=== PATIENT | male | born 1980 | race Caucasian/White ===

== ENCOUNTER 2016-11-05 23:00 | Emergency (ER) | payer BC ==
[2016-11-05 23:06] VITALS: BP 146/104
--- NOTE | 2016-11-06 00:31 | EDM.PDOC ---
ED HPI GENERAL MEDICAL PROBLEM - General Chief Complaint: Cardiovascular Problem Stated Complaint: [facility] Time Seen by Provider: 11/05/16 23:12 Source of Information: Reports: Patient, RN Notes Reviewed - History of Present Illness INITIAL COMMENTS - FREE TEXT/NARRATIVE: 36-year-old male has been brought in by caregiver ambulance after suffering symptoms of what patient describes as memory loss while at work. He states that he does remember getting to a well site but then seemed confused as to the time of the day or evening and how he got to the well site. He states he feels like he lost a period of time from starting his shift and hour or 2 prior. He took a short break from work or nap. He felt like he still was having some memory problems and difficulty concentrating. Therefore he called his boss. His supervisor cutting and sewing room then met him and helped him connect with [place] [facility] who than did transport him here without further incident. On arrival to ED he feels much better and more normal. He states he still feels like he is loss of memory for 2 or 3 hours last evening. He does remember his ambulance ride here and calling , talking to his boss her supervisor cutting and sewing room. He knows the date and does remember other events from earlier today. 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 He states this is about his fifth night he states he typically does work 7 days a week, about 10 hour shifts. He has not been ill recently with vomiting diarrhea. He did have some palpitations this evening but otherwise no chest pain or difficulty breathing. He has very slight frontal headache at this time. - Related Data Allergies Allergy/AdvReac Type Severity Reaction Status Date / Time No Known Allergies Allergy Verified 11/05/16 23:06 Home Meds: Home Meds . [No Known Home Meds] 11/05/16 [History] Past Medical History - Past Health History Medical/Surgical History: Denies Medical/Surgical History Dermatologic History: Reports: Other (See Below) Other Dermatologic History: ojeda to face, neck and hands - Infectious Disease History Infectious Disease History: Reports: Chicken Pox - Past Surgical History Dermatological Surgical History: Reports: Skin Graft Social & Family History - Tobacco Use Smoking Status *Q: Current Every Day Smoker Years of Tobacco use: 10 Packs/Tins Daily: 1 - Recreational Drug Use Recreational Drug Use: No - Living Situation & Occupation Living situation: Reports: Occupation: Employed ED ROS GENERAL - Review of Systems Review Of Systems: See Below Constitutional: Denies: Fever, Chills, Diaphoresis HEENT: Denies: Sinus Problem, Throat Pain, Vertigo, Vision Change Respiratory: Denies: Shortness of Breath Cardiovascular: Reports: Palpitations. Denies: Chest Pain GI/Abdominal: Denies: Abdominal Pain, Nausea, Vomiting Musculoskeletal: Denies: Neck Pain, Shoulder Pain, Arm Pain Skin: Reports: No Symptoms Neurological: Reports: Headache (Slight). Denies: Numbness, Tingling, Trouble Speaking, Difficulty Walking, Weakness ED EXAM, GENERAL - Physical Exam Exam: See Below General Appearance: Alert, No Apparent Distress Eye Exam: Bilateral Eye: PERRL Throat/Mouth: Normal Inspection, Normal Oropharynx Head: Atraumatic. No: Facial Swelling Neck: Supple, Full Range of Motion Respiratory/Chest: No Respiratory Distress, Lungs Clear, Normal Breath Sounds Cardiovascular: Regular Rate, Rhythm Back Exam: Normal Inspection, Full Range of Motion Extremities: Normal Inspection, Normal Range of Motion, Non-Tender, No Pedal Edema Neurological: Alert, Oriented, No Motor/Sensory Deficits, Other (Finger to nose testing normal) Skin Exam: Warm, Dry, Normal Color EKG INTERPRETATION EKG Date: 11/05/16 Rhythm: NSR [place]: Normal P-Wave: Present QRS: Normal ST-T: Normal Course - Vital Signs Last Recorded V/S: Last Vital Signs Temp 97.2 F 11/05/16 23:02 Pulse 70 11/05/16 23:02 Resp 16 11/05/16 23:02 BP 146/104 H 11/05/16 23:02 Pulse Ox 99 11/05/16 23:02 - Orders/Labs/Meds Orders: Active Orders 24 hr Category Date Time Status EKG 12 Lead [EKG Documentation Completion] [RC] STAT Care 11/05/16 23:13 Active Head wo Cont [CT] Stat Exams 11/06/16 00:00 Taken Labs: Laboratory Tests 11/05/16 11/05/16 11/05/16 Range/Units 23:05 23:05 23:05 WBC 9.58 H (4.23-9.07) K/mm3 RBC 5.68 (4.63-6.08) M/mm3 Hgb 17.5 (13.7-17.5) gm/L Hct 48.9 (40.1-51.0) % MCV 86.1 (79.0-92.2) fl MCH 30.8 (25.7-32.2) pg MCHC 35.8 H (32.2-35.5) g/dl RDW Std Deviation 40.7 (35.1-43.9) fL Plt Count 316 (163-337) K/mm3 MPV 9.3 L (9.4-12.3) fl Neut % (Auto) 57.7 (34.0-67.9) % Lymph % (Auto) 30.7 (21.8-53.1) % [place] % (Auto) 9.0 (5.3-12.2) % Eos % (Auto) 1.6 (0.8-7.0) Baso % (Auto) 0.3 (0.1-1.2) % Neut # (Auto) 5.53 H (1.78-5.38) K/mm3 Lymph # (Auto) 2.94 (1.32-3.57) K/mm3 [place] # (Auto) 0.86 H (0.30-0.82) K/mm3 Eos # (Auto) 0.15 (0.04-0.54) K/mm3 Baso # (Auto) 0.03 (0.01-0.08) K/mm3 Sodium 141 (136-145) mEq/L Potassium 4.0 (3.5-5.1) mEq/L Chloride 104 (98-107) mEq/L Carbon Dioxide 28 (21-32) mEq/L Anion Gap 13.0 (5-15) BUN 16 (7-18) mg/dL Creatinine 1.2 (0.7-1.3) mg/dL Est Cr Clr Drug Dosing 79.56 mL/min Estimated GFR (MDRD) > 60 (>60) mL/min BUN/Creatinine Ratio 13.3 L (14-18) Glucose 93 (74-106) mg/dL Calcium 9.6 (8.5-10.1) mg/dL Total Bilirubin 0.4 (0.2-1.0) mg/dL AST 36 (15-37) U/L ALT 63 (16-63) U/L Alkaline Phosphatase 57 (46-116) U/L Total Protein 7.8 (6.4-8.2) g/dl Albumin 4.4 (3.4-5.0) g/dl Globulin 3.4 gm/dL Albumin/Globulin Ratio 1.3 (1-2) Urine Opiates Screen Negative (NEGATIVE) Ur Buprenorphine Scrn Negative (NEGATIVE) Ur Oxycodone Screen Negative (NEGATIVE) Urine Methadone Screen Negative (NEGATIVE) Ur Propoxyphene Screen Negative (NEGATIVE) Ur Barbiturates Screen Negative (NEGATIVE) Ur Tricyclics Screen Negative (NEGATIVE) Ur Phencyclidine Scrn Negative (NEGATIVE) Ur Amphetamine Screen Negative (NEGATIVE) U Methamphetamines Scrn Negative (NEGATIVE) U Benzodiazepines Scrn Negative (NEGATIVE) U Cocaine Metab Screen Negative (NEGATIVE) U Marijuana (THC) Screen Negative (NEGATIVE) - Re-Assessments/Exams Free Text/Narrative Re-Assessment/Exam: 11/06/16 00:50 Labs are relatively normal, head CT is come back normal. He continues to have no neuro deficit while here in the ED. speach pattern,memory, affect, other neurologic function all normal at this time. Symptoms are most compatible with transient global amnesia syndrome, relatively mild. Patient feels up to going home at this time. Discharge instructions as documented Departure - Departure Time of Disposition: 00:54 Disposition: Home, Self-Care 01 Condition: Fair Clinical Impression: Transient global amnesia Instructions: Transient Global Amnesia Referrals: PCP,None [Primary Care Provider] - Forms: ED Department Discharge, ED Return to Work/School Form Additional Instructions: Rest, take the remainder of the night off work. Work hard to stop smoking. It looks like that is your major health risk at this time. See Dr. Soler in follow-up later this week. [phone] for appointment. Return to ED if symptoms worsening in any way. You may return to work tomorrow evening if you have no further difficulty with memory, thinking or concentration. - My Orders Last 24 Hours: My Active Orders 11/05/16 23:13 EKG 12 Lead [EKG Documentation Completion] [RC] STAT 11/06/16 00:00 Head wo Cont [CT] Stat - Assessment/Plan Last 24 Hours: My Active Orders 11/05/16 23:13 EKG 12 Lead [EKG Documentation Completion] [RC] STAT 11/06/16 00:00 Head wo Cont [CT] Stat
--- NOTE | 2016-11-06 07:01 | CT ---
Head CT Technique: Multiple axial sections through the brain were obtained. Intravenous contrast was not utilized. Comparison: No previous intracranial imaging. Findings: Ventricles along with basal cisterns and sulci over the convexities are within normal limits for the patient's age. Slightly prominent cisterna magna is seen which is normal variant. No abnormal parenchymal densities are seen. No evidence of intracranial hemorrhage. No midline shift or mass effect is seen. Bone window settings were reviewed which show the visualized sinuses to contain mucosal thickening within the sphenoid and ethmoid sinuses. No acute calvarial abnormality is seen. Impression: 1. Mucosal thickening within the paranasal sinuses most likely due to chronic sinusitis. 2. No acute intracranial abnormality is seen. Diagnostic code #2 I agree with preliminary report issued by [employer] [facility] ([facility] preliminary report dictated on 11/06/16, 1:24 AM Central Time)
== END 2016-11-06 01:09 | disposition home or self-care (01) ==
LOC: JD.ED 23:00
DX: G45.4 Transient global amnesia (principal); F17.210 Nicotine dependence, cigarettes, uncomplicated
CPT/HCPCS: 36415; 70450; 70450-26; 80053; 80306; 85025; 93005; 99284; 99284-25

== ENCOUNTER 2018-04-12 17:15 | Emergency (ER) | payer BC ==
[2018-04-12 17:23] VITALS: BP 144/78
[2018-04-12] MEDS ORDERED: Benoxinate/Fluorescein 0.4-0.25% Ophth Soln 5 ML Bottle EYERT ONE (17:26)
[2018-04-12] MEDS ORDERED: Proparacaine 0.5% Ophth Soln 15 ML Bottle EYERT ONE (17:27)
[2018-04-12] MEDS ORDERED: Fluorescein 0.6 MG Ophth Strip ONE (17:34)
[2018-04-12] MEDS ORDERED: Erythromycin Base 0.5% Ophth Oint 1 GM Tube EYERT ONE (18:42)
--- NOTE | 2018-04-12 18:49 | EDM.PDOC ---
ED HPI GENERAL MEDICAL PROBLEM - General Chief Complaint: Eye Problems Stated Complaint: R EYE INJURY Time Seen by Provider: 04/12/18 17:44 Source of Information: Reports: Patient History Limitations: Reports: No Limitations - History of Present Illness INITIAL COMMENTS - FREE TEXT/NARRATIVE: Patient is a 37-year-old male presents ED complaining of right eye irritation. States he feels like he has a foreign body within his eye. States he awoke this evening with the sensation and after taking this shower discomfort has grown increasingly worse. Patient admits to rubbing his eye. Having a sensation of a foreign body prior to going to bed this morning. He does not wear contacts. It is mildly red with excessive tearing noted. No vision changes noted. No headache. Right Eye Pain Score (Numeric/FACES): 5 - Related Data Allergies Allergy/AdvReac Type Severity Reaction Status Date / Time No Known Allergies Allergy Verified 04/12/18 17:23 Home Meds: Home Meds Erythromycin Base [Erythromycin 0.5% Ophth Oint] 1 applic EYERT QID 7 Days #1 tube 04/12/18 [Rx] Past Medical History - Past Health History Medical/Surgical History: Denies Medical/Surgical History Dermatologic History: Reports: Other (See Below) Other Dermatologic History: ojeda to face, neck and hands - Infectious Disease History Infectious Disease History: Reports: Chicken Pox - Past Surgical History Dermatological Surgical History: Reports: Skin Graft Social & Family History - Tobacco Use Smoking Status *Q: Current Every Day Smoker Years of Tobacco use: 21 Packs/Tins Daily: 0.5 - Recreational Drug Use Recreational Drug Use: No - Living Situation & Occupation Living situation: Reports: Occupation: Employed ED ROS GENERAL - Review of Systems Review Of Systems: ROS reveals no pertinent complaints other than HPI. ED EXAM GENERAL W FULL EYE - Physical Exam Exam: See Below Exam Limited By: No Limitations General Appearance: Alert, WD/WN, No Apparent Distress Eye Exam: Right Eye: Conjunctival Injection, Corneal Abrasion (12 o clock location. ), PERRL, Vision Changes (none noted), Left Eye: Normal Inspection, Bilateral Eye: EOMI Visual Acuity (R) 20/: 40 Visual Acuity (L) 20/: 25 With Correction: No IOP (R) in mmH IOP (L) in mmH IOP Measure with (Equipment): Other Eyelids: Right: Normal Appearance, Foreign Body (none noted), Infraorbital Anesthesia, Lid Everted for Exam Conjunctiva & Sclera: Right: Injected Cornea Exam: Right: Corneal Abrasion, Examined with Flourescein Extraocular Movements: Bilateral: Intact Pupillary Size: Bilateral: 4 mm Pupillary Reaction: Bilateral: Brisk Anterior Chamber: Right: Normal Appearance Ears: Hearing Grossly Normal Nose: Normal Inspection Head: Atraumatic, Normocephalic Neck: Normal Inspection Respiratory/Chest: No Respiratory Distress, No Accessory Muscle Use Neurological: Alert, Oriented, CN II-XII Intact Psychiatric: Normal Affect, Normal Mood Skin Exam: Warm, Dry, Intact, Normal Color Course - Vital Signs Last Recorded V/S: Last Vital Signs Temp 98 F 04/12/18 17:21 Pulse 58 L 04/12/18 17:21 Resp 16 04/12/18 17:21 BP 144/78 H 04/12/18 17:21 Pulse Ox 100 04/12/18 17:21 - Orders/Labs/Meds Meds: Medications Discontinued Medications Generic Name Dose Route Start Last Admin Trade Name Blane PRN Reason Stop Dose Admin Erythromycin 1 gm 04/12/18 18:42 Erythromycin 0.5% Ophth Oint EYERT 04/12/18 18:43 ONETIME ONE Fluorescein Sodium Confirm 04/12/18 17:34 Ful-Carlee Administered 04/12/18 17:35 Dose 1.2 mg .ROUTE .STK-MED ONE Fluorescein Sodium/Benoxinate HCl 1 ml 04/12/18 17:26 Fluress Ophth Soln EYERT 04/12/18 17:27 ONETIME ONE Proparacaine HCl 1 ml 04/12/18 17:27 04/12/18 17:33 Proparacaine 0.5% Ophth Soln EYERT 04/12/18 17:28 1 ml ONETIME ONE Administration - Re-Assessments/Exams Free Text/Narrative Re-Assessment/Exam: Under slit lamp examination patient does have a small corneal abrasion to the 12 o'clock position. No foreign objects noted. Erythromycin ointment applied. Visual acuity testing obtained with no concerning findings. Patient will be discharged with a prescription for erythromycin ointment. Return precautions discussed with the patient. He will see his director appointment of choice on Saturday or Saturday for reevaluation. Patient was encouraged to return back to the ER if he should have any new or worsening symptoms. Departure - Departure Time of Disposition: 18:50 Disposition: Home, Self-Care 01 Condition: Good Clinical Impression: Corneal abrasion Qualifiers: Encounter type: initial encounter Laterality: right Qualified Code(s): S05.01XA - Injury of conjunctiva and corneal abrasion without foreign body, right eye, initial encounter - Discharge Information Prescriptions: Erythromycin Base [Erythromycin 0.5% Ophth Oint] 1 applic EYERT QID 7 Days #1 tube Referrals: PCP,None [Primary Care Provider] - Additional Instructions: Apply 1 cm ribbon of erythromycin ointment to the right eye 4-6 times daily. Utilize Tylenol and ibuprofen in alternating fashion for pain. Do not rub the affected eye. Call and make an appointment to see director appointment of your choice this Saturday or Saturday for reevaluation. Return to the ED if you develop any new or worsening symptoms.
== END 2018-04-12 19:05 | disposition home or self-care (01) ==
LOC: JD.ED 17:15
DX: S05.01XA Injury of conjunctiva and corneal abrasion without foreign body, right eye, initial encounter (principal); F17.210 Nicotine dependence, cigarettes, uncomplicated; X58.XXXA Exposure to other specified factors, initial encounter
CPT/HCPCS: 99283; A9270; 65222